=== PATIENT | male | born 2000 | race Caucasian/White ===

== ENCOUNTER 2023-07-29 23:29 | Emergency (ER) | payer BC ==
[~2023-07-29] VITALS: Ht 170.2 cm; Wt 82.0 kg
[2023-07-29 23:34] VITALS: BP 125/76; O2SAT 98
[2023-07-29] MEDS ORDERED: PREDNISONE 20MG TABLET PO ONE (23:45)
[2023-07-29] MEDS ORDERED: FAMOTIDINE 20MG TABLET PO SCH (23:45)
[2023-07-29] MEDS ORDERED: DIPHENHYDRAMINE 50MG CAPSULE PO ONE (23:45)
[2023-07-29] MEDS ORDERED: DIPHENHYDRAMINE 25MG CAPSULE PO NR (23:45)
[2023-07-30] MEDS ORDERED: P20 PO (00:57)
[2023-07-30 01:14] VITALS: PULSE 84; RESP 18; TEMP 97.9
== END 2023-07-30 01:14 | disposition home or self-care (01) ==
LOC: ER 23:29
DX: L50.0 Allergic urticaria (principal)
CPT/HCPCS: 99284; J7512; Q0163